=== PATIENT | female | born 1980 | race Hispanic/Latino ===

== ENCOUNTER 2022-02-16 09:00 | Inpatient (IN) | payer BC ==
[2022-02-16] MEDS ORDERED: NS w/ Oxytocin 30 units 500 ML ONE ×2 (09:30→09:57)
[2022-02-16] MEDS ORDERED: Oxytocin 10 UNITS/ML VIAL ONE (09:31)
[2022-02-16] MEDS: Butorphanol Tartrate 1 MG/ML VIAL ONE ×2 (09:36→09:37)
[2022-02-16] MEDS ORDERED: Lidocaine 1% PF 10 ML AMP ONE (09:37)
[2022-02-16] MEDS ORDERED: Boostrix 0.5 ML (Tdap) VIAL IM ONE (09:53)
[2022-02-16] MEDS ORDERED: Lanolin Ointment 7 GM TUBE TOP PRN (09:53)
[2022-02-16] MEDS ORDERED: Promethazine HCl 25 MG/ML VIAL IM PRN (09:53)
[2022-02-16] MEDS ORDERED: Ondansetron PF 4 MG/2 ML Vial IVP PRN (09:53)
[2022-02-16] MEDS ORDERED: hydrALAZINE 20 MG/ML VIAL SLOW IVP PRN ×3 (09:53→10:34)
[2022-02-16] MEDS ORDERED: HYDROcodone/Acetaminophen 5/325 mg Tablet PO PRN ×2 (09:53)
[2022-02-16] MEDS ORDERED: Bisacodyl 10 MG SUPP PR PRN ×2 (09:53→10:34)
[2022-02-16] MEDS ORDERED: Zolpidem Tartrate 5 MG TAB PO PRN (09:53)
[2022-02-16] MEDS ORDERED: Milk Of Magnesia 30 ML UDCUP PO PRN ×2 (09:53→10:34)
[2022-02-16] MEDS ORDERED: Methylergonovine 0.2 MG/ML VIAL IM PRN (09:53)
[2022-02-16] MEDS ORDERED: Benzocaine-Menthol 82.5 ML CAN TOP PRN ×2 (09:53→10:34)
[2022-02-16] MEDS ORDERED: diphenhydrAMINE 25 MG CAP PO PRN (09:53)
[2022-02-16] MEDS ORDERED: Misoprostol 200 MCG TAB VAG PRN (09:53)
[2022-02-16] MEDS ORDERED: NS w/ Oxytocin 30 units 500 ML IV SCH (10:00)
[2022-02-16 10:34] VITALS: BMI 34.3
[2022-02-16 10:58] LABS: White Blood Cell (WBC) Count 9.3 10x3/uL (3.5-10.5)
[2022-02-16 10:59] LABS: %Lymphocytes 14.6 % (18.0-47.0); %Neutrophils 78.6 % (40.0-75.0); Hemoglobin 11.5 g/dL (12.0-15.5); Mean Corpuscular HGB CONC 33.6 g/dL (32.0-36.0); Mean Corpuscular Hemoglobin 31.1 pg (27.0-33.0); Mean Corpuscular Volume 92.4 fl (81.6-98.3); Mean Platelet Volume 10.7 fl (7.4-10.4); Platelet Count 224 10x3/uL (150-450)
[2022-02-16 11:00] LABS: #Monocytes 0.5 10x3/uL (0.0-1.1); #Neutrophils 7.3 10x3/uL (1.5-8.4); %Basophils 0.2 % (0.0-2.0); %Eosinophils 0.3 % (0.0-6.0); %Monocytes 5.8 % (0.0-10.0)
[2022-02-16 11:24] LABS: HBSAg Index 0.19 S/CO (0-0.99); Hep B Surf Ag NonReactive S/CO (NonReactive)
[2022-02-16 11:25] LABS: Syphilis Antibody Nonreactive (Nonreactive); Syphilis Antibody Index 0.06 S/CO (<1.00 Non-Reactive)
[2022-02-16 11:42] LABS: SARS-CoV-2 NAA Rapid Test Not Detected (NotDetected)
[2022-02-16] MEDS: Ferrous Sulfate 325 MG TAB PO SCH (11:52)
[2022-02-16] MEDS ORDERED: Ibuprofen 800 MG TAB PO SCH (14:00)
[2022-02-16] MEDS: Ibuprofen 800 MG TAB PO SCH ×2 (14:14→21:42)
[2022-02-16] MEDS ORDERED: Ferrous Sulfate 325 MG TAB PO SCH (17:00)
[2022-02-16] MEDS ORDERED: Docusate 100 MG CAP PO SCH (21:00)
[2022-02-16] MEDS: Docusate 100 MG CAP PO SCH (21:42)
[2022-02-17 01:44] LABS: HIV (1/2) Antibody/Antigen Non-Reactive (NonReactive); HIV 1/2 INDEX 0.14 S/CO (<1.00)
[2022-02-17] MEDS: Ibuprofen 800 MG TAB PO SCH ×2 (05:17→13:17)
[2022-02-17] MEDS: Ferrous Sulfate 325 MG TAB PO SCH (08:12)
[2022-02-17] MEDS: Docusate 100 MG CAP PO SCH (08:57)
[2022-02-17 11:53] VITALS: BP 100/52; TEMP 98.1
== END 2022-02-17 13:45 | disposition home or self-care (01) | DRG 807 ==
LOC: CSHLD/OP 09:00 → CSHLD 09:46 → CSHPP 11:35
PROVIDERS: ADMIT Family Medicine; ATTEND Family Medicine
PROC: 10E0XZZ Delivery of Products of Conception, External Approach (ICD-10-PCS; principal; 2022-02-16)
PROC: 0KQM0ZZ Repair Perineum Muscle, Open Approach (ICD-10-PCS; 2022-02-16)
DX: O62.3 Precipitate labor (principal); Z37.0 Single live birth; O70.1 Second degree perineal laceration during delivery; Z3A.38 38 weeks gestation of pregnancy; Z20.822 Contact with and (suspected) exposure to COVID-19
CPT/HCPCS: 85025; 86780; 86850; 86900; 86901; 87340; 87389; 99285; J0595; J2001; J2590; U0002

== ENCOUNTER 2023-01-25 12:10 | Outpatient (CLI) | payer BC | END 2023-01-25 12:11 | disposition home or self-care (01) | LOC: CSHMAMMO 12:10 | PROVIDERS: ATTEND Family Medicine | DX: Z12.31 Encounter for screening mammogram for malignant neoplasm of breast (principal); Z80.3 Family history of malignant neoplasm of breast | CPT/HCPCS: 77063; 77067 ==

== ENCOUNTER 2024-02-01 08:59 | Outpatient (CLI) | payer BC | END 2024-02-01 09:00 | disposition home or self-care (01) | LOC: CSHMAMMO 08:59 | PROVIDERS: ATTEND Family Medicine | DX: Z12.31 Encounter for screening mammogram for malignant neoplasm of breast (principal); Z80.3 Family history of malignant neoplasm of breast | CPT/HCPCS: 77063; 77067 ==

== ENCOUNTER 2024-07-10 15:04 | Outpatient (CLI) | payer BC ==
[2024-07-10 15:52] LABS: #Basophils 0.04 10x3/uL (0.0-0.2); #Eosinophils 0.25 10x3/uL (0.0-0.5); #Monocytes 0.49 10x3/uL (0.0-1.1); %Basophils 0.5 % (0.0-2.0); %Eosinophils 2.9 % (0.0-6.0); %Lymphocytes 32.9 % (18.0-47.0); %Monocytes 5.8 % (0.0-10.0); %Neutrophils 57.8 % (40.0-75.0); Hematocrit 37.6 % (34.9-44.5); Hemoglobin 12.8 g/dL (12.0-15.5); Mean Corpuscular Hemoglobin 29.8 pg (27.0-33.0); Mean Corpuscular Volume 87.6 fL (81.6-98.3); Mean Platelet Volume 10.3 fL (7.4-10.4); Platelet Count 326 10x3/uL (150-450); Red Blood Cell (RBC) Count 4.29 10x6/uL (3.90-5.03); White Blood Cell (WBC) Count 8.5 10x3/uL (3.5-10.5)
[2024-07-10 16:03] LABS: Anion Gap 14 mmol/L (10-20); BUN (Urea Nitrogen) 15 mg/dL (7.0-18.7); Calc. Creatinine Clearance 0 mL/min (70-130); Calcium 9.5 mg/dL (7.8-10.44); Carbon Dioxide 26 mmol/L (22-29); Chloride 105 mmol/L (98-107); Estimated GFR 88; Glucose 130 mg/dL (70-105); Potassium 3.9 mmol/L (3.5-5.1); Sodium 141 mmol/L (136-145)
[2024-07-10 17:10] LABS: BHCG - Serum Negative (NEGATIVE); Pregs Control Background? CLEAR/WHITE (CLR/WHITE); Pregs Control Bar Appear? YES (CONTROL BAR)
== END 2024-07-10 15:05 | disposition home or self-care (01) ==
LOC: CSHLAB 15:04
PROVIDERS: ATTEND Specialist
DX: Z01.812 Encounter for preprocedural laboratory examination (principal); N61.1 Abscess of the breast and nipple
CPT/HCPCS: 80048; 84703; 85025

== ENCOUNTER 2024-07-16 10:27 | Day surgery (SDC) | payer BC ==
[2024-07-10 15:30] VITALS: BMI 33.7
[2024-07-16] MEDS ORDERED: Bupivacaine/Epinephrine 0.25% 30 ML VIAL ONE (10:42)
[2024-07-16] MEDS ORDERED: PROPOFOL 20 ML ONE (11:29)
[2024-07-16] MEDS ORDERED: Ketorolac Tromethamine 30 MG (1 mL) VIAL ONE (11:33)
[2024-07-16] MEDS ORDERED: Acetaminophen 500 MG TAB ONE (11:34)
[2024-07-16] MEDS ORDERED: fentaNYL 50 mcg/mL 1 mL Vial ONE (11:35)
[2024-07-16] MEDS ORDERED: CEFAZOLIN 2 GM VIAL ONE (12:11)
[2024-07-16] MEDS ORDERED: Midazolam HCl 2 mg/2 ml Vial ONE (12:37)
[2024-07-16] MEDS ORDERED: Metoclopramide HCl 10 MG (2 mL) VIAL ONE (12:52)
[2024-07-16] MEDS ORDERED: Ondansetron PF 4 MG/2 ML Vial ONE (12:52)
[2024-07-16] MEDS ORDERED: Dexamethasone 4 mg/ml Vial ONE (12:52)
[2024-07-16] MEDS ORDERED: PHENYLEPHRINE-NS 100 MCG/ML 10 ML SYRINGE ONE (13:23)
== END 2024-07-16 15:00 | disposition home or self-care (01) ==
LOC: CSHSDC 10:27
PROVIDERS: ATTEND Specialist
PROC: 0H9U0ZZ Drainage of Left Breast, Open Approach (ICD-10-PCS; principal; 2024-07-16)
DX: N61.22 Granulomatous mastitis, left breast (principal); B96.89 Other specified bacterial agents as the cause of diseases classified elsewhere; E78.5 Hyperlipidemia, unspecified; M10.9 Gout, unspecified; Z79.899 Other long term (current) drug therapy
CPT/HCPCS: 88304; 88312; 88341; 88342; A6258; J1100; J1885; J2250; J2405; J2704; J2765; J3010

== ENCOUNTER 2025-03-12 15:16 | Outpatient (CLI) | payer BC | END 2025-03-12 15:17 | disposition home or self-care (01) | LOC: CSHDTY/OP 15:16 | PROVIDERS: ATTEND Nurse Practitioner Family | DX: E11.9 Type 2 diabetes mellitus without complications (principal) | CPT/HCPCS: 97802 ==

== ENCOUNTER 2025-07-03 15:02 | Outpatient (CLI) | payer BC | END 2025-07-03 15:03 | disposition home or self-care (01) | LOC: CSHMAMMO 15:02 | PROVIDERS: ATTEND Family Medicine | DX: R92.8 Other abnormal and inconclusive findings on diagnostic imaging of breast (principal) | CPT/HCPCS: 77066; G0279 ==